=== PATIENT | male | born 1990 | race Hispanic/Latino ===

== ENCOUNTER 2016-10-11 04:13 | Inpatient (IN) | payer MEDICAID ==
[2016-10-11 04:15] VITALS: BMI 29.9
--- NOTE | 2016-10-11 04:36 | C.PDOC ---
History Of Present Illness 26 y/o male who is states he is non-compliant with his schizophrenia meds, states he took 100 Benadryl pills to hurt himself. Patient states that he bought the pills from [employer]. Patient denies homicidal ideation, fever, chills, rash, dizziness, headache, chest tightness, weakness, or any other complaints. Time Seen by Provider: 10/11/16 04:35 Chief Complaint (Nursing): Psychiatric Evaluation History Per: Patient History/Exam Limitations: no limitations Onset/Duration Of Symptoms: Hrs Current Symptoms Are (Timing): Still Present Suicide/Self Injury Attempted (Context): Ingestion Ingestion Of Substance: 100 benadryl pills Modifying Factor(s): None Severity: Moderate Pain Scale Rating Of: 4 Associated Symptoms: Suicidal Thoughts, Suicidal Plan Recent travel outside of the [place]: No Additional History Per: Patient Past Medical History Reviewed: Historical Data, Nursing Documentation, Vital Signs Vital Signs: Last Vital Signs Temp 98 F 10/11/16 04:33 Pulse 120 H 10/11/16 04:33 Resp 20 10/11/16 04:33 BP 140/96 H 10/11/16 04:33 Pulse Ox 97 10/11/16 05:44 - Medical History PMH: Anxiety, Depression Denies: Bipolar Disorder, Diabetes, Hepatitis, HIV, HTN, Paranoia, Post Traumatic Stress Disorder, Schizophrenia, Seizures, Sexually Transmitted Disease Family History: States: Unknown Family Hx - Social History Hx Tobacco Use: Yes Hx Alcohol Use: No Hx Substance Use: No - Immunization History Hx Tetanus Toxoid Vaccination: No Hx Influenza Vaccination: No Hx Pneumococcal Vaccination: No Review Of Systems Constitutional: Negative for: Fever, Chills, Weakness Eyes: Negative for: Redness ENT: Negative for: Throat Pain Cardiovascular: Negative for: Chest Pain Respiratory: Negative for: Shortness of Breath Gastrointestinal: Positive for: Nausea, Vomiting. Negative for: Abdominal Pain Genitourinary: Negative for: Dysuria Musculoskeletal: Negative for: Back Pain Skin: Negative for: Rash Neurological: Negative for: Headache, Dizziness Psych: Positive for: Suicidal ideation. Negative for: Other (Homicidal ideation ) Physical Exam - Physical Exam Appears: Non-toxic, No Acute Distress, Unkempt (Slightly desheveled) Skin: Warm, Dry Head: Normacephalic Eye(s): bilateral: Normal Inspection Oral Mucosa: Moist Neck: Supple Chest: Symmetrical Cardiovascular: Rhythm Regular Respiratory: Normal Breath Sounds, No Rales, No Rhonchi, No Wheezing Gastrointestinal/Abdominal: Soft, No Tenderness, Other (Actively vomiting) Back: No CVA Tenderness Extremity: No Pedal Edema Extremity: Bilateral: Atraumatic Neurological/Psych: Oriented x3, Normal Speech, Normal Cognition Gait: Steady ED Course And Treatment - Laboratory Results Result Diagrams: 10/11/16 05:12 10/11/16 05:12 O2 Sat by Pulse Oximetry: 97 (RA) Pulse Ox Interpretation: Normal Critical Care Time - Critical Care Note Total Time (in mins): 30 Documented critical care: time excludes all time spent performing seperately billable procedures. Disposition Counseled Patient/Family Regarding: Studies Performed, Diagnosis - Disposition Disposition Time: 04:36 Condition: UNKNOWN Forms: [employer] [facility] (Lebanese) - Clinical Impression Clinical Impression: Schizophrenia, Drug overdose - Scribe Statement The provider has reviewed the documentation as recorded by the Scribe Hero trimble All medical record entries made by the Scribe were at my direction and personally dictated by me. I have reviewed the chart and agree that the record accurately reflects my personal performance of the history, physical exam, medical decision making, and the department course for this patient. I have also personally directed, reviewed, and agree with the discharge instructions and disposition. Physician Patient Turnover Patient Signed Over To: Michelle Islas Handoff Comments: pending crisis eval and dispo
[2016-10-11] MEDS ORDERED: Sodium Chloride 0.9% 1,000 ML IV ONE ×2 (04:44→07:51)
[2016-10-11] MEDS ORDERED: Sodium Chloride 0.9% 1,000 ML ONE ×2 (05:10→08:00)
[2016-10-11 05:18] LABS: BASO # 0.1 K/uL (0.0-0.2); BASO % 0.5 % (0.0-2.0); EOS # 0.4 K/uL (0.0-0.7); EOS % 3.4 % (0.0-4.0); HEMATOCRIT 42.6 % (35.0-51.0); LYMPH # 1.2 K/uL (1.0-4.3); LYMPH % 10.9 % (20.0-40.0); MEAN CELL VOLUME 88.1 fL (80.0-94.0); MEAN CORPUSCULAR HEMOGLOBIN 29.5 pg (27.0-31.0); MEAN CORPUSCULAR HGB CONC 33.4 g/dL (33.0-37.0); MEAN PLATELET VOLUME 8.6 fL (7.2-11.7); MONO % 9.3 % (0.0-10.0); RED CELL DISTRIBUTION WIDTH 13.6 % (11.5-14.5); WHITE BLOOD COUNT 10.8 K/uL (4.8-10.8)
[2016-10-11 05:31] LABS: ALB/GLOB RATIO 1.1 (1.0-2.1); ALCOHOL SERUM < 10 mg/dl (0-10); ALKALINE PHOSPHATASE 67 U/L (38-126); ALT/SGPT 39 U/L (21-72); AST/SGOT 24 U/L (17-59); BILIRUBIN,TOTAL 0.2 mg/dL (0.2-1.3); BLOOD UREA NITROGEN 11 mg/dL (9-20); CALCIUM 9.2 mg/dl (8.6-10.4); CARBON DIOXIDE 24 mmol/L (22-30); CHLORIDE 105 mmol/L (98-107); GFR AFRICAN-AMERICAN > 60; GLUCOSE,RANDOM 83 mg/dL (75-110); POTASSIUM 3.8 mmol/L (3.6-5.2); SODIUM 144 mmol/L (132-148)
[2016-10-11 06:03] LABS: RBC URINE < 1 /hpf (0-3); URINE BILIRUBIN NEGATIVE (NEGATIVE); URINE BLOOD NEGATIVE (NEGATIVE); URINE COLOR Straw (YELLOW); URINE GLUCOSE (UA) NORMAL (Normal); URINE KETONE NEGATIVE (NEGATIVE); URINE LEUKOCYTE ESTERASE NEG Leu/uL (Negative); URINE PROTEIN NEGATIVE (NEGATIVE); URINE UROBILINOGEN NORMAL mg/dL (0.2-1.0); WBC URINE < 1 /hpf (0-5)
--- NOTE | 2016-10-11 09:21 | CT ---
PROCEDURE: CT HEAD WITHOUT CONTRAST. HISTORY: ams COMPARISON: None available. TECHNIQUE: Axial computed tomography images were obtained through the head/brain without intravenous contrast. Radiation dose: Total exam DLP = 1029 mGy-cm. This CT exam was performed using one or more of the following dose reduction techniques: Automated exposure control, adjustment of the mA and/or kV according to patient size, and/or use of iterative reconstruction technique. FINDINGS: HEMORRHAGE: No intracranial hemorrhage. BRAIN: No mass effect or edema. Density of the bess and white matter structures above and below the tentorium appears within normal limits diffusely. There is no suspicious fluid collection appreciate throughout with the sulci and cisterns normal in overall volume. Midline brain and appears within normal limits grossly. VENTRICLES: Unremarkable. No hydrocephalus. CALVARIUM: Unremarkable. PARANASAL SINUSES: Unremarkable as visualized. No significant inflammatory changes. MASTOID AIR CELLS: Unremarkable as visualized. No inflammatory changes. OTHER FINDINGS: None. IMPRESSION: Normal CT of the Head. Follow-up CT or MRI is available if clinically warranted.
[2016-10-11 09:22] LABS: VENOUS BLOOD GAS BASE EXCESS -0.5 mmol/L (0.0-2.0); VENOUS BLOOD GAS PCO2 39 mmHg (40-60)
[2016-10-11] MEDS: Dextrose 5%/0.9% NS 1,000 ML IV SCH ×2 (10:52→20:36)
[2016-10-11] MEDS: Enoxaparin 40 mg Syringe SC SCH (10:53)
--- NOTE | 2016-10-11 15:05 | PCM.PSYCH ---
Initial Psychiatric Evaluation - Initial Psychiatric Evaluation Legal Status: Capacity Chief Complaint (in patient's own words): Psych consult for attempted Benadryl overdose and history of poorly controlled schizophrenia History of Present Illness and Precipitating Events: Pt is a 26 year old male with a history of anxiety, depression and poorly controlled schizophrenia (due to noncompliance with meds) who presented to the ED this morning after ingesting 100 Benadryl pills in an attempt to harm himself. Pt was consulted. At bedside, pt remained restless, disorganized, mumbling incoherently to himself. He remained disorganized and internally preoccupied. He appeared delusional and psychotic. But remained disoriented to time, place and person. Patient does not respond to questions when asked. Will follow up later. Current Medications: Active Medications Generic Name Dose Route Start Last Admin Trade Name Freq PRN Reason Stop Dose Admin Enoxaparin Sodium 40 mg 10/11/16 10:15 10/11/16 10:53 Lovenox SC 40 mg DAILY JUAN JOSE Administration Famotidine 20 mg 10/11/16 10:15 10/11/16 10:53 Pepcid PO 20 mg DAILY JUAN JOSE Administration Dextrose/Sodium Chloride 1,000 mls @ 100 mls/hr 10/11/16 10:15 10/11/16 10:52 Dextrose 5%/0.9% Ns 1000 Ml IV 100 mls/hr .Q10H JUAN JOSE Administration Lorazepam 1 mg 10/11/16 10:15 10/11/16 13:20 Ativan IVP 1 mg Q2H PRN Administration Agitation Pneumococcal Polyvalent Vaccine 0.5 ml 10/14/16 10:00 Pneumovax 23 Vaccine IM 10/14/16 10:01 .ONCE ONE Past Psychiatric History - Past Psychiatric History Previous Treatment History: Inpatient Pertinent Medical Hx (Current Medical&Sleep Prob, Allergies): Allergies Allergy/AdvReac Type Severity Reaction Status Date / Time lactose AdvReac DIARRHEA Verified 08/08/16 21:54 Amoxicillin/Clavulanate [Augmentin 875 MG-125 MG] 1 tab PO BID #20 tab 11/14/13 Azithromycin [Zithromax Z-Jose] 250 mg PO DAILY #6 tab 12/01/13 Prozac 20 mg PO DAILY 12/01/13 Diphenhydramine Hydrochlorid [Benadryl] 50 mg PO DAILY 01/19/14 Fluoxetine Hydrochloride [Prozac] 20 mg PO DAILY 01/19/14 Review of Systems - Review of Systems Systems not reviewed;Unavailable: Altered Mental Status - Neurological Neurological: UNREMARKABLE - Psychiatric Psychiatric: As Per [facility] Mental Status Examination - Personal Presentation Personal Presentation: Looks stated age - Affect Affect: Broad - Motor Activity Motor Activity: Psychomotor Agitation - Reliability in Providing Information Reliability in Providing Information: Poor, due to alteration in thoughts - Speech Speech: Disorganized, Irrelevant, Incoherent - Mood Mood: Anxious - Formal Thought Process Formal Thought Process: Hallucinations, Loosening of associations - Obsessions/Compulsions Obsessions: None Compulsions: None - Cognitive Functions Judgement: Imparied, as evidence by: Lack of insight into illness - Risk Risk: Suicidal, Diminished functioning DSM 5 DX - DSM 5 DSM 5 Diagnosis: Delirium Schizophrenia paranoid type - Recommended/Plan of Treatment Treatment Recommendations and Plan of Treatment: Acute delirium, hyperactive Ativan 1mg IVP Q2H PRN for agitation Schizophrenia paranoid type Haldol prn - Smoking Cessation Smoking Cessation Initiated: No
--- NOTE | 2016-10-11 15:19 | CP.PCM.CON ---
<TeriRoyce R - Last Filed: 10/11/16 15:29> History of Present Illness - History of Present Illness History of Present Illness: Pt is a 26 year old male with a history of anxiety, depression and poorly controlled schizophrenia (due to noncompliance with meds) who presented to the ED this morning stating he ingested 100 Benadryl pills in an attempt to harm himself. Patient unable to answer questions as he is acutely confused and mumbling, unable to verbalize what happened or how he is feeling. Review of Systems - Review of Systems Systems not reviewed;Unavailable: Altered Mental Status, Intoxicated, Uncooperative, Psychotic Past Patient History - Infectious Disease Hx of Infectious Diseases: None - Tetanus Immunizations Tetanus Immunization: Unknown - Past Medical History & Family History Past Medical History?: Yes - Past Social History Smoking Status: Unknown If Ever Smoked - CARDIAC Hx Hypertension: Yes - PULMONARY Hx Respiratory Disorders: No Hx Tuberculosis: No - NEUROLOGICAL Hx Neurological Disorder: Yes Hx Seizures: No - HEENT Hx HEENT Problems: No - RENAL Hx Chronic Kidney Disease: No - ENDOCRINE/METABOLIC Hx Endocrine Disorders: No - HEMATOLOGICAL/ONCOLOGICAL Hx Blood Disorders: No - INTEGUMENTARY Hx Dermatological Problems: No - MUSCULOSKELETAL/RHEUMATOLOGICAL Hx Musculoskeletal Disorders: No Hx Falls: No - GASTROINTESTINAL Hx Gastrointestinal Disorders: No - GENITOURINARY/GYNECOLOGICAL Hx Genitourinary Disorders: No - PSYCHIATRIC Hx Psychophysiologic Disorder: Yes Hx Anxiety: Yes Hx Schizophrenia: Yes Hx Substance Use: No - SURGICAL HISTORY Hx Surgeries: No - ANESTHESIA Hx Anesthesia: No Hx Anesthesia Reactions: No Hx Malignant Hyperthermia: No Meds Allergies/Adverse Reactions: Allergies Allergy/AdvReac Type Severity Reaction Status Date / Time lactose AdvReac DIARRHEA Verified 08/08/16 21:54 - Medications Medications: Current Medications Enoxaparin Sodium (Lovenox) 40 mg SC DAILY JUAN JOSE Last Admin: 10/11/16 10:53 Dose: 40 mg Famotidine (Pepcid) 20 mg PO DAILY JUAN JOSE Last Admin: 10/11/16 10:53 Dose: 20 mg Dextrose/Sodium Chloride (Dextrose 5%/0.9% Ns 1000 Ml) 1,000 mls @ 100 mls/hr IV .Q10H JUAN JOSE Last Admin: 10/11/16 10:52 Dose: 100 mls/hr Lorazepam (Ativan) 1 mg IVP Q2H PRN PRN Reason: Agitation Last Admin: 10/11/16 13:20 Dose: 1 mg Pneumococcal Polyvalent Vaccine (Pneumovax 23 Vaccine) 0.5 ml IM .ONCE ONE Stop: 10/14/16 10:01 Physical Exam - Head Exam Head Exam: ATRAUMATIC, NORMAL INSPECTION - Eye Exam Eye Exam: EOMI, PERRL Pupil Exam: Mydriatic, NORMAL ACCOMODATION - Respiratory Exam Respiratory Exam: Clear to Auscultation Bilateral - Cardiovascular Exam Cardiovascular Exam: Tachycardia, REGULAR RHYTHM - GI/Abdominal Exam GI & Abdominal Exam: Normal Bowel Sounds, Soft Results - Vital Signs Recent Vital Signs: Last Vital Signs Temp 99.6 F 10/11/16 08:23 Pulse 106 H 10/11/16 11:50 Resp 15 10/11/16 11:50 BP 147/95 H 10/11/16 11:36 Pulse Ox 98 10/11/16 11:50 - Labs Result Diagrams: 10/11/16 05:12 10/11/16 05:12 Labs: Laboratory Results - last 24 hr 10/11/16 09:05 pO2 48 VBG pH 7.40 VBG pCO2 39 L VBG HCO3 24.2 VBG Total CO2 25.4 VBG O2 Sat (Calc) 88.6 H VBG Base Excess -0.5 L VBG Potassium 4.0 A-a O2 Difference 53.0 Sodium 140.0 Chloride 111.0 H Glucose 96 Lactate 1.5 FiO2 21.0 Crit Value Called To Dr evans Crit Value Called By Jamie blancas cigarette packing machine operator Crit Value Read Back Y Blood Gas Notified Time 920 Venous Blood Potassium 4.0 Assessment & Plan - Assessment and Plan (Free Text) Assessment: Pt is a 26 year old male with a history of anxiety, depression and poorly controlled schizophrenia (due to noncompliance with meds) who presented to the ED this morning stating he ingested 100 Benadryl pills in an attempt to harm himself. Neuro: disoriented, restless, disorganized, incoherent - lorazepam 1mg iv q2h prn for agitation - psych consulted, Dr Howard on board - CT head unremarkable CV: tachycardic; hypertensive - ekg sinus tachy; no qt changes All other organ systems with no active issues Prophylaxis: - on 1:1 - DVT: lovenox 40mg sc daily - GI: pepcid 20mg po daily - Diet: npo - social work referral <Gerson Evans - Last Filed: 10/11/16 17:07> Meds - Medications Medications: Current Medications Enoxaparin Sodium (Lovenox) 40 mg SC DAILY [facility] Last Admin: 10/11/16 10:53 Dose: 40 mg Famotidine (Pepcid) 20 mg PO DAILY [facility] Last Admin: 10/11/16 10:53 Dose: 20 mg Dextrose/Sodium Chloride (Dextrose 5%/0.9% Ns 1000 Ml) 1,000 mls @ 100 mls/hr IV .Q10H [facility] Last Admin: 10/11/16 10:52 Dose: 100 mls/hr Lorazepam (Ativan) 1 mg IVP Q2H PRN PRN Reason: Agitation Last Admin: 10/11/16 15:35 Dose: 1 mg Pneumococcal Polyvalent Vaccine (Pneumovax 23 Vaccine) 0.5 ml IM .ONCE ONE Stop: 10/14/16 10:01 Results - Vital Signs Recent Vital Signs: Last Vital Signs Temp 99.6 F 10/11/16 08:23 Pulse 106 H 10/11/16 11:50 Resp 15 10/11/16 11:50 BP 147/95 H 10/11/16 11:36 Pulse Ox 98 10/11/16 11:50 - Labs Result Diagrams: 10/11/16 05:12 10/11/16 05:12 Labs: Laboratory Results - last 24 hr 10/11/16 09:05 pO2 48 VBG pH 7.40 VBG pCO2 39 L VBG HCO3 24.2 VBG Total CO2 25.4 VBG O2 Sat (Calc) 88.6 H VBG Base Excess -0.5 L VBG Potassium 4.0 A-a O2 Difference 53.0 Sodium 140.0 Chloride 111.0 H Glucose 96 Lactate 1.5 FiO2 21.0 Crit Value Called To Dr evans Crit Value Called By Jamie blancas cigarette packing machine operator Crit Value Read Back Y Blood Gas Notified Time 920 Venous Blood Potassium 4.0 Attending/Attestation - Attestation I have personally seen and examined this patient.: Yes I have fully participated in the care of the patient.: Yes I have reviewed all pertinent clinical information: Yes Notes (Text): 10/11/16 17:05 Patient seen and examined 26-year-old male with history of schizophrenia admitted with diphenhydramine overdose unknown amount Admitted to ICU for tachycardia but no clear anticholinergic overdose symptoms Ativan as needed Continue IV fluids No indication for physostigmine Seen by psychiatry Continue 1-1 and ICU monitoring
[2016-10-12 06:17] LABS: BASO % 0.2 % (0.0-2.0); EOS # 0.3 K/uL (0.0-0.7); EOS % 2.8 % (0.0-4.0); HEMATOCRIT 41.7 % (35.0-51.0); LYMPH # 1.4 K/uL (1.0-4.3); LYMPH % 12.9 % (20.0-40.0); MEAN CELL VOLUME 87.5 fL (80.0-94.0); MEAN CORPUSCULAR HEMOGLOBIN 29.4 pg (27.0-31.0); MEAN CORPUSCULAR HGB CONC 33.6 g/dL (33.0-37.0); MEAN PLATELET VOLUME 8.5 fL (7.2-11.7); MONO # 0.8 K/uL (0.0-0.8); MONO % 7.4 % (0.0-10.0); RED CELL DISTRIBUTION WIDTH 13.5 % (11.5-14.5); WHITE BLOOD COUNT 10.7 K/uL (4.8-10.8)
[2016-10-12 06:34] LABS: ALKALINE PHOSPHATASE 69 U/L (38-126); ALT/SGPT 35 U/L (21-72); AST/SGOT 20 U/L (17-59); BILIRUBIN,TOTAL 0.5 mg/dL (0.2-1.3); BLOOD UREA NITROGEN 8 mg/dL (9-20); CALCIUM 8.7 mg/dl (8.6-10.4); CARBON DIOXIDE 25 mmol/L (22-30); CHLORIDE 104 mmol/L (98-107); GFR AFRICAN-AMERICAN > 60; GLUCOSE,RANDOM 89 mg/dL (75-110); MAGNESIUM 1.9 mg/dL (1.6-2.3); POTASSIUM 3.8 mmol/L (3.6-5.2); SODIUM 140 mmol/L (132-148); TOTAL PROTEIN 6.3 g/dL (6.3-8.3)
[2016-10-12] MEDS: Dextrose 5%/0.9% NS 1,000 ML IV SCH ×4 (07:36→19:01)
--- NOTE | 2016-10-12 08:51 | CP.CCUPN ---
<Royce Williamson R - Last Filed: 10/12/16 18:16> CCU Subjective - Physician Review Subjective (Free Text): Patient seen and examined at bedside with 1:1 nearby. Patient remains restless, disorganized, mumbling incoherently to himself. Disoriented to person, place and time. ROS not obtainable. 10/12/16 18:20 CCU Objective - Vital Signs / Intake & Output Intake and Output (Last 8hrs): Intake & Output 10/11/16 10/12/16 10/12/16 22:59 06:59 14:59 Intake Total 800 900 Output Total 200 650 Balance 600 250 Intake: Intake, IV Amount 800 900 Right Antecubital 800 900 Output: Urine 200 650 Urine, Voided 200 650 Other: # Voids Urine, Voided 1 # Bowel Movements 0 0 - Physical Exam Head: Positive for: Atraumatic, Normocephalic Pupils: Positive for: PERRL Extroacular Muscles: Positive for: EOMI Respiratory/Chest: Positive for: Clear to Auscultation. Negative for: Wheezes, Rales, Rhonchi Cardiovascular: Positive for: Regular Rate and Rhythm, Normal S1, S2. Negative for: Murmurs Abdomen: Positive for: Normal Bowel Sounds. Negative for: Tenderness Upper Extremity: Positive for: Normal Inspection. Negative for: Edema Lower Extremity: Positive for: Normal Inspection. Negative for: Edema Neurological: Negative for: Speech Normal Skin: Positive for: Warm, Dry, Normal Color. Negative for: Rashes Psychiatric: Positive for: Alert. Negative for: Oriented x 3, Normal Insight, Normal Concentration - Medications Active Medications: Active Medications Generic Name Dose Route Start Last Admin Trade Name Freq PRN Reason Stop Dose Admin Benztropine Mesylate 2 mg 10/11/16 23:53 Cogentin PO Q6 PRN Extra Pyramidal Symptoms Diphenhydramine HCl 50 mg 10/11/16 23:53 Benadryl PO Q6 PRN Extra Pyramidal Symptoms Enoxaparin Sodium 40 mg 10/11/16 10:15 10/11/16 10:53 Lovenox SC 40 mg DAILY JUAN JOSE Administration Famotidine 20 mg 10/11/16 10:15 10/11/16 10:53 Pepcid PO 20 mg DAILY JUAN JOSE Administration Haloperidol 5 mg 10/11/16 23:53 Haldol PO Q8 PRN Moderate Agitation Haloperidol Lactate 5 mg 10/11/16 23:53 Haldol IM Q8 PRN Moderate Agitation Dextrose/Sodium Chloride 1,000 mls @ 100 mls/hr 10/11/16 10:15 10/12/16 07:36 Dextrose 5%/0.9% Ns 1000 Ml IV Not Given .Q10H JUAN JOSE Lorazepam 1 mg 10/11/16 10:15 10/11/16 15:35 Ativan IVP 1 mg Q2H PRN Administration Agitation Pneumococcal Polyvalent Vaccine 0.5 ml 10/14/16 10:00 Pneumovax 23 Vaccine IM 10/14/16 10:01 .ONCE ONE - Patient Studies Lab Studies: Lab Studies 10/12/16 10/12/16 10/11/16 Range/Units 06:00 06:00 09:05 WBC 10.7 (4.8-10.8) K/uL RBC 4.77 (4.40-5.90) Mil/uL Hgb 14.0 (12.0-18.0) g/dL Hct 41.7 (35.0-51.0) % MCV 87.5 (80.0-94.0) fL MCH 29.4 (27.0-31.0) pg MCHC 33.6 (33.0-37.0) g/dL RDW 13.5 (11.5-14.5) % Plt Count 240 (130-400) K/uL MPV 8.5 (7.2-11.7) fL Neut % (Auto) 76.7 H (50.0-75.0) % Lymph % (Auto) 12.9 L (20.0-40.0) % [place] % (Auto) 7.4 (0.0-10.0) % Eos % (Auto) 2.8 (0.0-4.0) % Baso % (Auto) 0.2 (0.0-2.0) % Neut # 8.2 H (1.8-7.0) K/uL Lymph # 1.4 (1.0-4.3) K/uL [place] # 0.8 (0.0-0.8) K/uL Eos # 0.3 (0.0-0.7) K/uL Baso # 0.0 (0.0-0.2) K/uL pO2 48 (30-55) mm/Hg VBG pH 7.40 (7.32-7.43) VBG pCO2 39 L (40-60) mmHg VBG HCO3 24.2 mmol/L VBG Total CO2 25.4 (22-28) mmol/L VBG O2 Sat (Calc) 88.6 H (40-65) % VBG Base Excess -0.5 L (0.0-2.0) mmol/L VBG Potassium 4.0 (3.6-5.2) mmol/L A-a O2 Difference 53.0 mm/Hg Sodium 140 140.0 (132-148) mmol/l Chloride 104 111.0 H (98-107) mmol/L Glucose 96 (75-110) mg/dl Lactate 1.5 (0.7-2.1) mmol/L FiO2 21.0 % Crit Value Called To Dr evans Crit Value Called By Jamie blancas barrel tester Crit Value Read Back Y Blood Gas Notified Time 920 Potassium 3.8 (3.6-5.2) mmol/L Carbon Dioxide 25 (22-30) mmol/L Anion Gap 14 (10-20) BUN 8 L (9-20) mg/dL Creatinine 0.9 (0.8-1.5) MG/DL Est GFR ( Amer) > 60 Est GFR (Non-Af Amer) > 60 Random Glucose 89 (75-110) mg/dL Calcium 8.7 (8.6-10.4) mg/dl Phosphorus 3.0 (2.5-4.5) mg/dL Magnesium 1.9 (1.6-2.3) mg/dL Total Bilirubin 0.5 (0.2-1.3) mg/dL AST 20 (17-59) U/L ALT 35 (21-72) U/L Alkaline Phosphatase 69 (38-126) U/L Total Protein 6.3 (6.3-8.3) g/dL Albumin 3.2 L (3.5-5.0) g/dL Globulin 3.1 (2.2-3.9) gm/dL Albumin/Globulin Ratio 1.0 (1.0-2.1) Venous Blood Potassium 4.0 (3.6-5.2) mmol/L Laboratory Results - last 24 hr 10/11/16 10/12/16 10/12/16 09:05 06:00 06:00 WBC 10.7 RBC 4.77 Hgb 14.0 Hct 41.7 MCV 87.5 MCH 29.4 MCHC 33.6 RDW 13.5 Plt Count 240 MPV 8.5 Neut % (Auto) 76.7 H Lymph % (Auto) 12.9 L [place] % (Auto) 7.4 Eos % (Auto) 2.8 Baso % (Auto) 0.2 Neut # 8.2 H Lymph # 1.4 [place] # 0.8 Eos # 0.3 Baso # 0.0 pO2 48 VBG pH 7.40 VBG pCO2 39 L VBG HCO3 24.2 VBG Total CO2 25.4 VBG O2 Sat (Calc) 88.6 H VBG Base Excess -0.5 L VBG Potassium 4.0 A-a O2 Difference 53.0 Sodium 140.0 140 Chloride 111.0 H 104 Glucose 96 Lactate 1.5 FiO2 21.0 Crit Value Called To Dr evans Crit Value Called By Jamie blancas barrel tester Crit Value Read Back Y Blood Gas Notified Time 920 Potassium 3.8 Carbon Dioxide 25 Anion Gap 14 BUN 8 L Creatinine 0.9 Est GFR ( Amer) > 60 Est GFR (Non-Af Amer) > 60 Random Glucose 89 Calcium 8.7 Phosphorus 3.0 Magnesium 1.9 Total Bilirubin 0.5 AST 20 ALT 35 Alkaline Phosphatase 69 Total Protein 6.3 Albumin 3.2 L Globulin 3.1 Albumin/Globulin Ratio 1.0 Venous Blood Potassium 4.0 Fingerstick Blood Sugar Results: 87 Review of Systems - Review of Systems Systems not reviewed;Unavailable: Psychotic Critical Care Progress Note - Nutrition Nutrition: Nutrition Category Date Time Status Liquid Diet [DIET] Diets 10/12/16 Breakfast Active Assessment/Plan - Assessment and Plan (Free Text) Assessment: Pt is a 26 year old male with a history of anxiety, depression and poorly controlled schizophrenia (due to noncompliance with meds) who presented to the ED this morning stating he ingested 100 Benadryl pills in an attempt to harm himself. Today 10/12/16: Nurse Stevenson received patient psych meds from his clinic. Tox screen negative. Neuro: disoriented, restless, disorganized, incoherent; no clear anticholinergic overdose symptoms - lorazepam 1mg iv q2h prn for agitation - no indication for physiostigmine - psych consulted, Dr Howard on board - CT head unremarkable CV: tachycardic; hypertensive - ekg sinus tachy; no qt changes All other organ systems with no active issues Prophylaxis: - on 1:1 - DVT: lovenox 40mg sc daily - GI: pepcid 20mg po daily - Diet: npo - social work referral <TimoJameson M - Last Filed: 10/17/16 10:57> CCU Objective - Vital Signs / Intake & Output Vital Signs (Last 4 hours): Vital Signs Temp Pulse Resp BP 10/17/16 07:39 97.9 F 88 20 136/91 H - Medications Active Medications: Active Medications Generic Name Dose Route Start Last Admin Trade Name Freq PRN Reason Stop Dose Admin Benztropine Mesylate 2 mg 10/11/16 23:53 Cogentin PO Q6 PRN Extra Pyramidal Symptoms Benztropine Mesylate 1 mg 10/13/16 18:00 10/17/16 09:44 Cogentin PO 1 mg BID JUAN JOSE Administration Diphenhydramine HCl 50 mg 10/11/16 23:53 Benadryl PO Q6 PRN Extra Pyramidal Symptoms Divalproex Sodium 250 mg 10/13/16 18:00 10/17/16 09:[address] PO 250 mg BID JUAN JOSE Administration Fluphenazine HCl 5 mg 10/13/16 18:00 10/17/16 09:44 Prolixin PO 5 mg BID JUAN JOSE Administration Haloperidol 5 mg 10/11/16 23:53 Haldol PO Q8 PRN Moderate Agitation Haloperidol Lactate 5 mg 10/11/16 23:53 Haldol IM Q8 PRN Moderate Agitation Lorazepam 1 mg 10/13/16 21:28 10/16/16 21:07 Ativan PO 1 mg Q6 PRN Administration Anxiety Nicotine 1 patch 10/14/16 10:00 10/17/16 09:44 Nicoderm Cq TD 1 patch DAILY JUAN JOSE Administration Sertraline HCl 100 mg 10/17/16 10:00 10/17/16 09:45 Zoloft PO 100 mg DAILY JUAN JOSE Administration Trazodone HCl 50 mg 10/13/16 22:00 10/16/16 21:07 Desyrel PO 50 mg HS JUAN JOSE Administration Critical Care Progress Note - Nutrition Nutrition: Nutrition Category Date Time Status Heart Healthy Diet [DIET] Diets 10/12/16 Dinner Active Attending/Attestation - Attestation I have personally seen and examined this patient.: Yes I have fully participated in the care of the patient.: Yes I have reviewed all pertinent clinical information: Yes Notes (Text): Today: , October 12, 2016 The patient was Seen/interviewed and examined by me at the bedside during ICU round, Medical records reviewed and Management issues were discussed and formulated with the house staff. I have reviewed all the relevant clinical, laboratory, hemodynamic, radiographic data and medications Pain issues, skin care, head of the bed elevation, glycemic control were addressed. I concur with resident's assessment and plan of care as transcribed in Dr. Williamson note.
[2016-10-12] MEDS: Enoxaparin 40 mg Syringe SC SCH (09:59)
--- NOTE | 2016-10-12 18:45 | CARD ---
APPROVED REPORT EKG Measurement Heart [id number] <Conclusion> Poor data quality, interpretation may be adversely affected Sinus tachycardia Otherwise normal ECG
--- NOTE | 2016-10-12 18:45 | CARD ---
APPROVED REPORT EKG Measurement Heart [id number] <Conclusion> Sinus tachycardia Otherwise normal ECG
[2016-10-13] MEDS: Dextrose 5%/0.9% NS 1,000 ML IV SCH (01:35)
--- NOTE | 2016-10-13 07:24 | HP ---
HISTORY OF PRESENT ILLNESS: A 26-year-old male who presented to the hospital with altered mental status after Benadryl overdose. The patient came to ER for admission. The patient is little bit confused. PHYSICAL EXAMINATION VITAL SIGNS: Temperature 98, pulse 90. HEENT: Within normal limits. NECK: Supple. CHEST: Symmetrical. HEART: Regular. ABDOMEN: Soft. EXTREMITIES: No edema. IMPRESSION: The patient suffers from Benadryl overdose. Advised ICU monitoring. Poison protocol. Johnathan Avila MD
[2016-10-13] MEDS: Enoxaparin 40 mg Syringe SC SCH (10:02)
--- NOTE | 2016-10-13 12:32 | PCM.BM ---
<Mindi Abdi - Last Filed: 10/13/16 12:32> Treatment Plan Problems - Problems identified on initial assessmt Depression Date Initiated: 10/13/16 Time Initiated: 12:32 Assessment reference: NA Status: Active Priority: 1 Suicidal Ideation Date Initiated: 10/13/16 Time Initiated: 12:32 Status: Monitor Priority: 2 - Milieu Protocol Milieu Narrative: Acute delirium, hyperactive Ativan 1mg IVP Q2H PRN for agitation Schizophrenia paranoid type Haldol prn Discharge/Continuing Care - Treatment Team Participation Patient/Family/SO Statement: Acute delirium, hyperactive Ativan 1mg IVP Q2H PRN for agitation Schizophrenia paranoid type Haldol prn <Bright Howard - Last Filed: 10/16/16 11:07> - Diagnosis (1) Schizoaffective disorder Status: Acute Interventions: 10/16/16 11:07 * Assess/adjust medications daily and /or as needed * See patient on an individual basis 7x/week to assess status of hallucinations * Discuss risks, benefits, side effects and alternatives of medications * <Staci Ledesma - Last Filed: 10/16/16 11:19> Family Contact Family involvement: Famliy/SO not involved - Goals for Treatment Patient goals for treatment: "I need fdc." Discharge/Continuing Care - Education Needs Education Needs: Patient Medication, Patient Coping Skills, Patient Placement options, Patient Community resources - Discharge Discharge Criteria: Tolerates medication w/o severe side effects, Free of Suicidal thoughts Discharge to:: [facility] - Treatment Team Participation Discussed with Family/SO: No Was Patient/Family/SO present at Treatment Team Meeting: Yes
--- NOTE | 2016-10-13 15:16 | PCM.PYCHPN ---
Psychiatric Progress Note - Psychiatric Progress Note Patient seen today, length of contact: 15 minutes Patient Chief Complaint: "I'm depressed and I tried to kill myself" Problems Identified/Issues Discussed: The patient is seen, chart reviewed, case discussed with staff. Patient allows himself to be interviewed but appears irritated by questioning. Patient states that he is currently homeless. He says he has been diagnosed with schizoaffective disorder. He currently sees a psychiatrist at [facility], most recently on October 03, and is compliant with his medications (Trilafon, Lexapro, Buspar). He was previously on Risperdol but taken off due to increased prolactin levels. Patient states that he is depressed. When questioned further, he states "if you were in my life situation you would be depressed too." He says that he has a lot of "troubles in life." He states that people make fun of him wherever he goes and put things about him on the internet. He states that he tried to commit suicide with Benadryl that he bought from a store. He has a history of a previous suicide attempt years ago but cannot recall when or what happened. Patient denies visual or auditory hallucinations. He states, "I'm not schizophrenic, I don't hear things and I don't see things." Patient agrees to be transferred to the psychiatric unit. He requires more time to stabilize. After care discussed, support and psychoeducation given. Medical Record Reviewed: Yes Mental Status Examination - Cognitive Function Orientation: Person, Place, Situation, Time Memory: Impaired Attention: Poor Concentration: Poor Association: Loose Fund of Knowledge: Poor - Mood Mood: Depressed, Anxious - Affect Affect: Broad - Speech Speech: Appropriate - Formal Thought Process Formal Thought Process: Hallucinations, Loosening of associations - Suicidal Ideation Suicidal Ideation: Yes - Homicidal Ideation Homicidal Ideation: No Goal/Treatment Plan - Goal/Treatment Plan Need for Continued Stay: Remain at risks for inpatient hospitalization, Severe depression anxiety, Discharge may exacerbated symptoms Progress Toward Problem(s) and Goals/Treatment Plan: Schizoaffective disorder r/o Schizophrenia, paranoid type r/o Major depressive disorder, recurrent, severe, with psychotic features Depakote 250mg PO BID Prolixin 5mg PO BID Haldol 5mg PO Q8 PRN moderate agitation Trazadone 50mg PO HS - Smoking Cessation Smoking Cessation Initiated: No
[2016-10-13] MEDS: Divalproex 250 mg DR Tab PO SCH (17:33)
[2016-10-14] MEDS: Enoxaparin 40 mg Syringe SC SCH (09:47)
[2016-10-14] MEDS: Divalproex 250 mg DR Tab PO SCH ×2 (09:53→17:09)
[2016-10-14] MEDS ORDERED: Pneumococcal 23-Valent Vaccine IM ONE (10:00)
--- NOTE | 2016-10-14 11:06 | PCM.PYCHPN ---
Psychiatric Progress Note - Psychiatric Progress Note Patient seen today, length of contact: 16 min Patient Chief Complaint: "I'm not well" Problems Identified/Issues Discussed: The pt is seen, chart reviewed, case discussed with staff. The pt is compliant with medications and reports no side-effects. Symptoms are improving but needs more time to stabilize. After care discussed, support and psychoeducation given. He is regressed a bit His ban from shelters discussed, support given Medication Change: Yes Medical Record Reviewed: Yes Mental Status Examination - Cognitive Function Orientation: Person, Place, Situation, Time Memory: Impaired Attention: Poor Concentration: Poor Association: Loose Fund of Knowledge: Poor - Mood Mood: Depressed, Anxious - Affect Affect: Broad - Speech Speech: Appropriate - Formal Thought Process Formal Thought Process: Hallucinations, Loosening of associations - Suicidal Ideation Suicidal Ideation: No - Homicidal Ideation Homicidal Ideation: No Goal/Treatment Plan - Goal/Treatment Plan Need for Continued Stay: Severe depression anxiety, Discharge may exacerbated symptoms, Severe functional impairment Progress Toward Problem(s) and Goals/Treatment Plan: Continue medications Support and psychoeducation daily Attend groups and activities daily After care planning by ARACELI Estimated Date of D/C: 10/20/16
[2016-10-15] MEDS: Divalproex 250 mg DR Tab PO SCH ×2 (09:35→17:38)
--- NOTE | 2016-10-16 08:48 | PCM.PYCHPN ---
Psychiatric Progress Note - Psychiatric Progress Note Patient seen today, length of contact: 16 min Patient Chief Complaint: "Still not doing well" Problems Identified/Issues Discussed: The pt is seen, chart reviewed, case discussed with staff. Support given, CBT and HI used briefly No new symptoms reported, improving slowly and needs more time No SEs from medications, risks discussed. After care discussed - wants rehab, but will also call his family to see if they will take him Medication Change: No Medical Record Reviewed: Yes Mental Status Examination - Cognitive Function Orientation: Person, Place, Situation, Time Memory: Impaired Attention: Poor Concentration: Poor Association: Loose Fund of Knowledge: Poor - Mood Mood: Depressed, Anxious - Affect Affect: Broad - Speech Speech: Appropriate - Formal Thought Process Formal Thought Process: Hallucinations, Loosening of associations - Suicidal Ideation Suicidal Ideation: No - Homicidal Ideation Homicidal Ideation: No Goal/Treatment Plan - Goal/Treatment Plan Need for Continued Stay: Severe depression anxiety, Discharge may exacerbated symptoms, Severe functional impairment Progress Toward Problem(s) and Goals/Treatment Plan: Continue medications Support and psychoeducation daily Attend groups and activities daily After care planning by ARACELI
--- NOTE | 2016-10-16 09:55 | PCM.PYCHPN ---
Psychiatric Progress Note - Psychiatric Progress Note Patient seen today, length of contact: 16 min Patient Chief Complaint: "I'm depressed and I tried to kill myself" Problems Identified/Issues Discussed: The patient is seen, chart reviewed, case discussed with staff. Patient remained isolated and withdrawn. He reports some improvement in his depressed mood, but still reports feelings of hopelessness. Patient states stressors including financial issues, lack of family support and homelessness. Patient denies visual or auditory hallucinations. He requires more time to stabilize. After care discussed, support and psychoeducation given. Medication Change: No Medical Record Reviewed: Yes Mental Status Examination - Cognitive Function Orientation: Person, Place, Situation, Time Memory: Impaired Attention: WNL Concentration: Poor Association: WNL Fund of Knowledge: Poor - Mood Mood: Depressed, Anxious - Affect Affect: Broad - Speech Speech: Appropriate - Formal Thought Process Formal Thought Process: No Impairment - Suicidal Ideation Suicidal Ideation: No - Homicidal Ideation Homicidal Ideation: No Goal/Treatment Plan - Goal/Treatment Plan Need for Continued Stay: Remain at risks for inpatient hospitalization, Severe depression anxiety, Discharge may exacerbated symptoms Progress Toward Problem(s) and Goals/Treatment Plan: Schizoaffective disorder r/o Schizophrenia, paranoid type r/o Major depressive disorder, recurrent, severe, with psychotic features Depakote 250mg PO BID Prolixin 5mg PO BID Haldol 5mg PO Q8 PRN moderate agitation Trazadone 50mg PO HS Zoloft 100 mg PO Q Daily - Smoking Cessation Smoking Cessation Initiated: No
[2016-10-16] MEDS: Divalproex 250 mg DR Tab PO SCH ×2 (10:02→18:33)
[2016-10-17] MEDS: Divalproex 250 mg DR Tab PO SCH ×2 (09:44→17:46)
--- NOTE | 2016-10-17 10:02 | PCM.PYCHPN ---
Psychiatric Progress Note - Psychiatric Progress Note Patient seen today, length of contact: 16 min Patient Chief Complaint: "I'm feeling little depressed " Problems Identified/Issues Discussed: The patient is seen, chart reviewed, case discussed with staff. As per the staff, pt has started coming out of hos room and reports some improvement in his depressed mood, but still reports feelings of hopelessness. Patient reports that medications are working and denies visual or auditory hallucinations. He wants to go to inpt rehab after discharge. He requires more time to stabilize. After care discussed, support and psychoeducation given. Medication Change: Yes (increase zoloft) Medical Record Reviewed: Yes Mental Status Examination - Cognitive Function Orientation: Person, Place, Situation, Time Memory: Impaired Attention: WNL Concentration: Poor Association: WNL Fund of Knowledge: Poor - Mood Mood: Depressed, Anxious - Affect Affect: Broad - Speech Speech: Appropriate - Formal Thought Process Formal Thought Process: No Impairment - Suicidal Ideation Suicidal Ideation: No - Homicidal Ideation Homicidal Ideation: No Goal/Treatment Plan - Goal/Treatment Plan Need for Continued Stay: Severe depression anxiety, Discharge may exacerbated symptoms, Severe functional impairment Progress Toward Problem(s) and Goals/Treatment Plan: Schizoaffective disorder r/o Major depressive disorder, recurrent, severe, with psychotic features Depakote 250mg PO BID Prolixin 5mg PO BID Haldol 5mg PO Q8 PRN moderate agitation Trazadone 50mg PO HS Zoloft 150 mg PO Q Daily Estimated Date of D/C: 10/20/16 - Smoking Cessation Smoking Cessation Initiated: No
[2016-10-18] MEDS: Divalproex 250 mg DR Tab PO SCH ×2 (10:12→17:19)
--- NOTE | 2016-10-18 11:14 | PCM.PYCHPN ---
Psychiatric Progress Note - Psychiatric Progress Note Patient seen today, length of contact: 16 min Patient Chief Complaint: "I'm feeling little depressed " Problems Identified/Issues Discussed: The patient is seen, chart reviewed, case discussed with staff. As per the staff, pt reports some improvement in his depressed mood, but he remained isolated and withdrawn. Patient reports that medications are working and denies visual or auditory hallucinations. He wants to go to inpt rehab after discharge. He denies any acute event. He requires more time for stabilization. After care discussed, support and psychoeducation given. Medication Change: Yes (increase zoloft) Medical Record Reviewed: Yes Mental Status Examination - Cognitive Function Orientation: Person, Place, Situation, Time Memory: Impaired Attention: WNL Concentration: Poor Association: WNL Fund of Knowledge: Poor - Mood Mood: Depressed, Anxious - Affect Affect: Broad - Speech Speech: Appropriate - Formal Thought Process Formal Thought Process: No Impairment - Suicidal Ideation Suicidal Ideation: No - Homicidal Ideation Homicidal Ideation: No Goal/Treatment Plan - Goal/Treatment Plan Need for Continued Stay: Severe depression anxiety, Discharge may exacerbated symptoms, Severe functional impairment Progress Toward Problem(s) and Goals/Treatment Plan: Schizoaffective disorder r/o Major depressive disorder, recurrent, severe, with psychotic features Depakote 250mg PO BID Prolixin 5mg PO BID Haldol 5mg PO Q8 PRN moderate agitation Trazadone 50mg PO HS Zoloft 150 mg PO Q Daily Estimated Date of D/C: 10/20/16
[2016-10-18 16:06] VITALS: O2SAT 98
[2016-10-19 07:31] VITALS: RESP 18
[2016-10-19] MEDS: Divalproex 250 mg DR Tab PO SCH ×2 (09:48→17:45)
--- NOTE | 2016-10-19 09:57 | PCM.PYCHPN ---
Psychiatric Progress Note - Psychiatric Progress Note Patient seen today, length of contact: 16 min Patient Chief Complaint: "I'm feeling little depressed " Problems Identified/Issues Discussed: The patient is seen, chart reviewed, case discussed with staff. Today pt reports improvement in his mood, but he remained isolated and withdrawn. Patient reports improvement in his sleep and appetite. He denies visual or auditory hallucinations. He is taking medications and denies any side effects. He is calling different programs as wants to go to in rehab after discharge. He requires more time for stabilization. After care discussed, support and psychoeducation given. Medication Change: No Medical Record Reviewed: Yes Mental Status Examination - Cognitive Function Orientation: Person, Place, Situation, Time Memory: Impaired Attention: WNL Concentration: Poor Association: WNL Fund of Knowledge: Poor - Mood Mood: Depressed, Anxious - Affect Affect: Broad - Speech Speech: Appropriate - Formal Thought Process Formal Thought Process: No Impairment - Suicidal Ideation Suicidal Ideation: No - Homicidal Ideation Homicidal Ideation: No Goal/Treatment Plan - Goal/Treatment Plan Need for Continued Stay: Severe depression anxiety, Discharge may exacerbated symptoms, Severe functional impairment Progress Toward Problem(s) and Goals/Treatment Plan: Schizoaffective disorder r/o Major depressive disorder, recurrent, severe, with psychotic features Depakote 250mg PO BID Prolixin 5mg PO BID Haldol 5mg PO Q8 PRN moderate agitation Trazadone 50mg PO HS Zoloft 150 mg PO Q Daily Estimated Date of D/C: 10/20/16 - Smoking Cessation Smoking Cessation Initiated: No
[2016-10-20] MEDS: Divalproex 250 mg DR Tab PO SCH ×2 (10:03→17:14)
[2016-10-21] MEDS: Divalproex 250 mg DR Tab PO SCH ×2 (09:40→17:26)
--- NOTE | 2016-10-21 11:15 | PCM.PYCHPN ---
Psychiatric Progress Note - Psychiatric Progress Note Patient seen today, length of contact: 16 min Patient Chief Complaint: "I'm feeling little better " Problems Identified/Issues Discussed: The patient is seen, chart reviewed, case discussed with staff. Pt reports that he is still calling different programs but has not heard any positive reply form anywhere. He reports improvement in his mood, sleep and appetite. He denies any suicidal ideation or homicidal ideation. He is taking medications and denies any side effects. He requires more time for stabilization. After care discussed, support and psychoeducation given. Medication Change: Yes (increase zoloft) Medical Record Reviewed: Yes Mental Status Examination - Cognitive Function Orientation: Person, Place, Situation, Time Memory: Impaired Attention: WNL Concentration: Poor Association: WNL Fund of Knowledge: WNL - Mood Mood: Depressed, Anxious - Affect Affect: Broad - Speech Speech: Appropriate - Formal Thought Process Formal Thought Process: No Impairment - Suicidal Ideation Suicidal Ideation: No - Homicidal Ideation Homicidal Ideation: No Goal/Treatment Plan - Goal/Treatment Plan Need for Continued Stay: Severe depression anxiety, Discharge may exacerbated symptoms, Severe functional impairment Progress Toward Problem(s) and Goals/Treatment Plan: Schizoaffective disorder r/o Major depressive disorder, recurrent, severe, with psychotic features Depakote 500 mg PO BID Prolixin 5mg PO BID Haldol 5mg PO Q8 PRN moderate agitation Trazadone 50mg PO HS Zoloft 200 mg PO Q Daily Estimated Date of D/C: 10/20/16 - Smoking Cessation Smoking Cessation Initiated: No
--- NOTE | 2016-10-21 11:16 | PCM.PYCHPN ---
Psychiatric Progress Note - Psychiatric Progress Note Patient seen today, length of contact: 16 min Patient Chief Complaint: "I'm feeling little better " Problems Identified/Issues Discussed: The patient is seen, chart reviewed, case discussed with staff. Today pt reports improvement in his mood, sleep and appetite. He is calling different programs as wants to go to inpt rehab after discharge. He denies visual or auditory hallucinations and denies any suicidal ideation or homicidal ideation. He is taking medications and denies any side effects. He requires more time for stabilization. After care discussed, support and psychoeducation given. Medication Change: Yes (increase depakote) Medical Record Reviewed: Yes Mental Status Examination - Cognitive Function Orientation: Person, Place, Situation, Time Memory: Impaired Attention: WNL Concentration: Poor Association: WNL Fund of Knowledge: Poor - Mood Mood: Depressed, Anxious - Affect Affect: Broad - Speech Speech: Appropriate - Formal Thought Process Formal Thought Process: No Impairment - Suicidal Ideation Suicidal Ideation: No - Homicidal Ideation Homicidal Ideation: No Goal/Treatment Plan - Goal/Treatment Plan Need for Continued Stay: Severe depression anxiety, Discharge may exacerbated symptoms, Severe functional impairment Progress Toward Problem(s) and Goals/Treatment Plan: Schizoaffective disorder r/o Major depressive disorder, recurrent, severe, with psychotic features Depakote 500mg PO BID Prolixin 5mg PO BID Haldol 5mg PO Q8 PRN moderate agitation Trazadone 50mg PO HS Zoloft 150 mg PO Q Daily Estimated Date of D/C: 10/23/16 - Smoking Cessation Smoking Cessation Initiated: No
[2016-10-22] MEDS: Divalproex 250 mg DR Tab PO SCH ×2 (10:52→18:33)
--- NOTE | 2016-10-22 13:47 | PCM.PYCHPN ---
Psychiatric Progress Note - Psychiatric Progress Note Patient seen today, length of contact: 16 min Patient Chief Complaint: "I'm feeling much better " Problems Identified/Issues Discussed: The patient is seen, chart reviewed, case discussed with staff. As per the staff, pt remained calm and cooperative over the weekend. He is looking forward to going to the intermediate upon discharge tomorrow. He reports improvement in his mood, and denies visual or auditory hallucinations or any SI/ HI. He is taking medications and denies any side effects. He requires more time to stabilize. After care discussed, support and psychoeducation given. Medication Change: Yes (increase zoloft) Medical Record Reviewed: Yes Mental Status Examination - Cognitive Function Orientation: Person, Place, Situation, Time Memory: Impaired Attention: WNL Concentration: WNL Association: WNL Fund of Knowledge: Poor - Mood Mood: Depressed, Anxious - Affect Affect: Broad - Speech Speech: Appropriate - Formal Thought Process Formal Thought Process: No Impairment - Suicidal Ideation Suicidal Ideation: No - Homicidal Ideation Homicidal Ideation: No Goal/Treatment Plan - Goal/Treatment Plan Need for Continued Stay: Severe depression anxiety, Discharge may exacerbated symptoms, Severe functional impairment Progress Toward Problem(s) and Goals/Treatment Plan: Schizoaffective disorder r/o Major depressive disorder, recurrent, severe, with psychotic features Depakote 500mg PO BID Prolixin 5mg PO BID Haldol 5mg PO Q8 PRN moderate agitation Trazadone 50mg PO HS Zoloft 200 mg PO Q Daily Estimated Date of D/C: 10/23/16 - Smoking Cessation Smoking Cessation Initiated: No
[2016-10-23 09:16] VITALS: BP 112/71; PULSE 108; TEMP 97.6
[2016-10-23] MEDS: Divalproex 250 mg DR Tab PO SCH (09:39)
--- NOTE | 2016-10-23 10:16 | PCM.PYCHDC ---
Mental Status Examination - Mental Status Examination Orientation: Person, Place, Situation, Time Memory: Intact Mood: Neutral Affect: Constricted Speech: Soft Attention: WNL Concentration: WNL Association: WNL Fund of Knowledge: WNL Formal Thought Process: No Impairment Description of patient's judgement and insight: Good, fair Psychotic Thoughts and Behaviors: Denies any AVH Suicidal Ideation: No Current Homicidal Ideation?: No Discharge Summary - Discharge Note Reason for Hospitalization: Pt is a 26 year old male with a history of anxiety, depression and poorly controlled schizophrenia (due to noncompliance with meds) who presented to the ED this morning after ingesting 100 Benadryl pills in an attempt to kill himself. Pt was consulted in the ICU. At bedside, pt remained restless, disorganized, mumbling incoherently to himself. He remained disorganized and internally preoccupied. He appeared delusional and psychotic. But remained disoriented to time, place and person. Patient does not respond to questions when asked. Consultations:: List each consultation separately and include: 1. Reason for request. 2. Findings. 3. Follow-up Summary of Hospital Course include:: 1. Description of specific treatment plan utilized for patients during their course of treatmen. 2. Summarize the time- course for resolution of acute symptoms and/or regressed behaviors. 3. Describe issues identified and worked on during hospitalization. 4. Describe medication utilized. 5. Describe medical problems identified and treated. 6. Reassessment of suicide risk Summary of Hospital Course: During the course of his stay, patient (pt) started progressively improving and he no longer remained anxious, depressed, paranoid and psychotic. He started attending groups and meetings and started socializing. He denied any feelings of hopelessness, helplessness, and worthlessness, denied any problem with the sleep or appetite, denied suicidal ideation or homicidal ideation. Pt denied any auditory or visual hallucinations. Patient remained calm and cooperative and remained compliant with the medications. Patient tolerated the medications very well and denied any side effects. - Diagnosis (1) Schizoaffective disorder Status: Acute - Final Diagnosis (DSM 5) Condition upon Discharge: UNKNOWN DSM 5: Major depressive disorder, recurrent, severe, with psychotic features Disposition: HOME/ ROUTINE Follow-up Treatment Plan: Follow-up Treatment Plan: Education: Pt was educated and counseled about the risks and benefits of taking and not taking medications. Pt was educated and counseled about the risks of drinking and abusing drugs. Pt was educated and counseled to go to the ER or call 911 if pt develop suicidal ideation or homicidal ideation, worsening of symptoms or severe side effects of the meds. Prescriptions/Medication Reconciliation: Benztropine [Cogentin] 1 mg PO BID #60 tab Divalproex [Depakote DR] 500 mg PO HS #30 tcp fluPHENAZine [Prolixin] 5 mg PO BID #60 tab Sertraline [Zoloft] 100 mg PO DAILY #60 tab traZODone [Desyrel] 50 mg PO HS #30 tab - Smoking Cessation Smoking Cessation Medication prescribed: No - Antipsychotic Medications Pt discharged on 2 or more routine antipsychotic medications: No
== END 2016-10-23 12:30 | disposition home or self-care (01) | DRG 430 ==
LOC: C.ER 04:13 → C.9OBSV 07:00 → OBSVTOIN 08:25 → C.9I 08:55 → C.5E 10-13 13:44
PROVIDERS: ADMIT Psychiatry & Neurology Psychiatry; ATTEND Psychiatry & Neurology Psychiatry
DX: F33.3 Major depressive disorder, recurrent, severe with psychotic symptoms (principal); T45.0X2A Poisoning by antiallergic and antiemetic drugs, intentional self-harm, initial encounter; F20.0 Paranoid schizophrenia; I10 Essential (primary) hypertension; R41.0 Disorientation, unspecified; Y92.009 Unspecified place in unspecified non-institutional (private) residence as the place of occurrence of the external cause; Z59.0 Homelessness; Z91.14 Patient's other noncompliance with medication regimen; Z91.5 Personal history of self-harm